=== PATIENT | female | born 2000 | race Caucasian/White ===

== ENCOUNTER 2025-10-09 22:26 | Emergency (ER) | payer OTHER ==
[~2025-10-09] VITALS: Ht 167.6 cm; Wt 78.5 kg
[2025-10-09] MEDS ORDERED: CYCLOBENZAPRINE10 MG PO (23:18)
[2025-10-09] MEDS ORDERED: APAP325 MG PO (23:18)
[2025-10-09] MEDS ORDERED: MOTRIN 600 MG E4 TAB PO (23:18)
[2025-10-09] MEDS ORDERED: OXYCODONE HCL5 MG PO (23:19)
[2025-10-09] MEDS ORDERED: SENNA8.6 MG PO (23:19)
[2025-10-10] MEDS ORDERED: Ondansetron Hydrochloride 4 MG/2 ML VIAL IV ONE (00:05)
[2025-10-10] MEDS ORDERED: SODIUM CHLORIDE 0.9% 1,000 ML IV ONE ×2 (00:05→00:48)
[2025-10-10 00:24] LABS: BASO # 0.0 10*3/uL (0.0-0.1); BASO % 0.3 % (0.0-1.0); EOS # 0.4 10*3/uL (0.0-0.4); EOS % 4.9 % (1.0-4.0); MEAN CELL VOLUME 77.9 fl (81.0-99.0); MEAN CORPUSCULAR HGB 24.4 pg (27.0-31.0); MEAN PLATELET VOLUME 8.7 fl (9.6-12.3); MONO # 0.4 10*3/uL (0.1-1.0); MONO % 5.5 % (3.0-9.0); NEUT # 4.7 10*3/uL (2.3-7.9); NEUT % 65.5 % (47.0-73.0); NUCLEATED RED BLOOD CELL 0.0 % (0.0-0.0); NUCLEATED RED BLOOD CELL 0.0 10*3/uL (0.0-0.0); PLATELET COUNT AUTOMATED 306 10*3/uL (130-400); RED CELL DISTRI WIDTH 15.8 % (0-14.5)
[2025-10-10 00:52] LABS: BUN 8 mg/dl (9-23)
[2025-10-10] MEDS ORDERED: Ondansetron4 MG PO (01:24)
== END 2025-10-10 02:12 | disposition home or self-care (01) ==
LOC: ED 22:26
PROVIDERS: Emergency Medicine
DX: R11.2 Nausea with vomiting, unspecified (principal); R51.9 Headache, unspecified; R53.83 Other fatigue; Z88.1 Allergy status to other antibiotic agents